=== PATIENT | female | born 1990 | race American Indian/Alaskan Native ===

== ENCOUNTER 2017-07-01 21:40 | Emergency (ER) | payer OTHER ==
[2017-07-01 21:40] VITALS: BMI 46.8
[2017-07-01 22:09] VITALS: BP 129/83; RESP 18; TEMP 98.3; O2SAT 99
--- NOTE | 2017-07-01 23:39 | C.PDOC ---
History Of Present Illness 27 year old female presents to the ED for c/o twisting her ankle on a trampoline 4 days ago. Patient states she is able to ambulate with some pain, and now pain has progressively gotten worse and developed swelling to his left ankle. Patient denies weakness, numbness, sensory or motor deficits, previous injury, trauma, fall. Time Seen by Provider: 07/01/17 22:40 Chief Complaint (Nursing): Lower Extremity Problem/Injury History Per: Patient History/Exam Limitations: no limitations Onset/Duration Of Symptoms: Days Current Symptoms Are (Timing): Still Present Recent travel outside of the [place]: No Additional History Per: Patient - Ankle/Foot Description Of Injury: Twisted Currently Unable To: Bend Or Move Past Medical History Reviewed: Historical Data, Nursing Documentation, Vital Signs Vital Signs: Last Vital Signs Temp 98.3 F 07/01/17 22:06 Pulse 75 07/02/17 00:50 Resp 18 07/02/17 00:50 BP 129/83 07/01/17 22:06 Pulse Ox 99 07/02/17 05:41 - Medical History PMH: Anemia, Asthma, Gastritis, Migraine Denies: Sickle Cell Disease Surgical History: No Surg Hx - [facility] Procedures INJECT/INFUSE NEC (11/08/13) Family History: States: Diabetes, Hypertension - Social History Hx Tobacco Use: No Hx Alcohol Use: Yes Hx Substance Use: No - Immunization History Hx Tetanus Toxoid Vaccination: No Hx Influenza Vaccination: Yes Hx Pneumococcal Vaccination: No Review Of Systems Constitutional: Negative for: Fever, Chills Musculoskeletal: Positive for: Other (ankle , left) Neurological: Negative for: Weakness, Numbness Physical Exam - Physical Exam Appears: Non-toxic, No Acute Distress Skin: Normal Color, Warm, Dry Head: Atraumatic, Normacephalic Eye(s): bilateral: Normal Inspection, PERRL Nose: No Discharge, No Deformity Oral Mucosa: Moist Neck: Normal ROM, Supple Chest: Symmetrical Cardiovascular: Rhythm Regular, No Murmur Respiratory: Normal Breath Sounds, No Rales, No Rhonchi, No Wheezing Gastrointestinal/Abdominal: Soft, No Tenderness, No Guarding, No Rebound Back: Normal Inspection Extremity: Normal ROM, Tenderness (left lateral malleolus ), No Calf Tenderness , Capillary Refill (< 2 seconds), No Deformity, Swelling (left lat malleolus ) Extremity: Bilateral: Normal Color And Temperature Pulses: Left Dorsalis Pedis: Normal, Right Dorsalis Pedis: Normal Neurological/Psych: Oriented x3, Normal Speech, Normal Cognition, Normal Motor, Normal Sensation Gait: Steady (small limp) ED Course And Treatment O2 Sat by Pulse Oximetry: 99 (On RA) Pulse Ox Interpretation: Normal - Other Rad Left foot X-Ray X-Ray: Interpreted by Me, Viewed By Me Interpretation: no fractire, dislocations Progress Note: Plan: -Motrin 600 mg PO. -Left foot X-ray. Patient was given motrin for the pain, placed his foot on a Marcio wrap by CP and crutches given and instructed how to properly use them. Disposition Counseled Patient/Family Regarding: Diagnosis, Need For Followup - Disposition Referrals: Camryn Garcia MD [Medical Doctor] - Disposition: HOME/ ROUTINE Disposition Time: 00:25 Condition: STABLE Additional Instructions: Please follow up with pMD or cable systems installer Take otrin or tylenol as needed for pain Return to ER if worse Instructions: Ankle Sprain (ED) Forms: [employer] ([place]) - Clinical Impression Clinical Impression: Left ankle sprain - PA / LUBRICATION SUPERVISOR / Resident Statement MD/DO has reviewed & agrees with the documentation as recorded. - Scribe Statement The provider has reviewed the documentation as recorded by the Scribe Oleksandr Ferro All medical record entries made by the Scribe were at my direction and personally dictated by me. I have reviewed the chart and agree that the record accurately reflects my personal performance of the history, physical exam, medical decision making, and the department course for this patient. I have also personally directed, reviewed, and agree with the discharge instructions and disposition.
[2017-07-02 00:51] VITALS: PULSE 75
--- NOTE | 2017-07-02 07:58 | RAD ---
PROCEDURE: Left Ankle Radiographs. HISTORY: twisting injury COMPARISON: None FINDINGS: BONES: No acute fracture identified. Focal area of lucent cortical expansion noted of the proximal 1st metatarsal measuring 0.7 cm, along the lateral aspect of unclear etiology. Postsurgical changes noted 1st metatarsal head. JOINTS: No dislocation seen. Ankle mortise maintained. Talar dome intact SOFT TISSUES: Unremarkable OTHER FINDINGS: None. IMPRESSION: No fracture or dislocation identified. Focal area of lucent cortical expansion noted of the proximal 1st metatarsal measuring 0.7 cm, along the lateral aspect of unclear etiology. Recommend CT for further evaluation.
== END 2017-07-02 00:51 | disposition home or self-care (01) ==
LOC: C.ER 21:40
DX: S93.402A Sprain of unspecified ligament of left ankle, initial encounter (principal); X50.1XXA Overexertion from prolonged static or awkward postures, initial encounter; Y93.44 Activity, trampolining